=== PATIENT | female | born 1975 | race Caucasian/White ===

== ENCOUNTER 2017-08-11 15:24 | Emergency (ER) | payer BC, OTHER ==
[~2017-08-11] VITALS: Ht 162.6 cm; Wt 88.9 kg
[2017-08-11 15:39] VITALS: TEMP 36.7; Ht 162.6 cm; Wt 88.9 kg
--- NOTE | 2017-08-11 16:48 | DIAGNOSTIC IMAGING REPORT ---
R VENOUS DOPP LOWER EXT UNILAT CLINICAL HISTORY: 42 years-old Female presenting with RIGHT CALF PAIN X 1 MONTH. TECHNIQUE: Real-time grayscale and color and spectral Doppler ultrasound imaging of the veins of the right lower extremity was performed. Compression and augmentation were also utilized. COMPARISON: None. FINDINGS: Right: Common femoral vein: Patent. Greater saphenous vein: Patent. Deep femoral vein: Patent. Femoral vein: Patent. Popliteal vein: Patent. Calf veins: Patent. Other: In the popliteal fossa, a 1.8 x 2.9 x 1.0 cm hypoechoic ill-defined collection intimately associated with the knee joint is evident. This could represent a popliteal cyst. IMPRESSION: 1. No evidence of deep venous thrombosis. 2. Suspected small popliteal cyst. Electronically signed by: Shivam oKroma M.D. 08/11/2017 4:46 PM Dictated Date/Time: 08/11/2017 4:46 PM
[2017-08-11] MEDS ORDERED: NASONEX NAE (16:53)
[2017-08-11] MEDS ORDERED: FEXO1TAB54 PO (16:53)
--- NOTE | 2017-08-11 16:56 | EMERGENCY ROOM VISIT NOTE ---
ED Visit Note First contact with patient: 15:42 CHIEF COMPLAINT: Right calf pain 1 month HISTORY OF PRESENT ILLNESS: Patient is an otherwise healthy 42-year-old white female who presents emergency department for evaluation of right calf pain 1 month. She notes a dull, constant, burning pain in the medial right calf. She occasionally notes a pulling sensation. She denies any trauma or unusual activity prior to the onset of her symptoms. She states that it is staying the same and has not gotten any worse, and therefore she has not done anything for her pain until today. She states that she only notices some pain with weightbearing after prolonged walking, states that it has not affected her normal activities significantly. She denies noticing any redness, warmth or swelling. There has not been a long period of immobilization or long car or plane ride recently. There is no personal or family history of blood clots in the veins of the legs. Nonsmoker, no OCPs or HRT. REVIEW OF SYSTEMS: Review of systems as per HPI. All other systems reviewed were negative. 10 systems reviewed. PMH: Electronic medical records are reviewed and summarized as above/below. See Problem List. SOCIAL HISTORY: Patient lives at home with her family. Employed. Non-smoker PHYSICAL EXAM: Vital Signs: Reviewed Nurse's notes. CONSTITUTIONAL: Patient is a pleasant, well-appearing 42-year-old white female who is awake and alert and in no acute distress. HEART: Regular rate and rhythm. LUNGS: Clear to auscultation. NEUROLOGICAL: Alert oriented, coherent. PERRL, EOMs full, gait normal. EXTREMITIES: No cyanosis, edema, joint tenderness or effusion. Pulses equal bilaterally. There is no erythema, increased warmth or induration. Trace pretibial edema noted bilaterally. The medial right gastrocnemius is mildly tender to palpation. No cords can be palpated and Kwame's sign is negative. There is no lymphangitic streaking. Knee and ankle range of motion are full. There is no knee joint effusion palpable. Distal pulses are easily palpable. Sensation light touch is intact. EMERGENCY DEPARTMENT COURSE: Ultrasound of the right lower extremity was obtained and was negative for DVT. There is a suspected small popliteal cyst on the right. Ultrasound findings were reviewed with the patient. Supportive care measures were discussed. The popliteal cyst certainly could be giving her some irritation and causing the calf discomfort. She was reassured. Medication reconciliation: I attest that I have personally reviewed the patient' s current medication list. Blood pressure screening : Patient was found to have normal blood pressure on screening and does not require follow-up. Differential diagnoses entertained included Achilles tendinitis, calf strain, DVT, superficial thrombophlebitis, cellulitis, lumbar radiculopathy, among others. R VENOUS DOPP LOWER EXT UNILAT CLINICAL HISTORY: 42 years-old Female presenting with RIGHT CALF PAIN X 1 MONTH. TECHNIQUE: Real-time grayscale and color and spectral Doppler ultrasound imaging of the veins of the right lower extremity was performed. Compression and augmentation were also utilized. COMPARISON: None. FINDINGS: Right: Common femoral vein: Patent. Greater saphenous vein: Patent. Deep femoral vein: Patent. Femoral vein: Patent. Popliteal vein: Patent. Calf veins: Patent. Other: In the popliteal fossa, a 1.8 x 2.9 x 1.0 cm hypoechoic ill-defined collection intimately associated with the knee joint is evident. This could represent a popliteal cyst. IMPRESSION: 1. No evidence of deep venous thrombosis. 2. Suspected small popliteal cyst. Problem List Medical Problems: (1) Environmental and seasonal allergies Status: Chronic Current/Historical Medications Scheduled Fexofenadine Hcl (Raissa Allergy), 1 DOSE PO DAILY [Nasonex], 1 DOSE AMARIS DAILY Allergies Coded Allergies: No Known Allergies (Verified , 08/11/17) Vital Signs Date Time Temp Pulse Resp B/P (MAP) Pulse Ox O2 Delivery O2 Flow Rate FiO2 08/11/17 15:39 36.7 91 18 140/95 97 Room Air Departure Information Impression Primary Impression: Right calf pain Referrals Adrien Krause M.D. (MEDICAL) (PCP) Patient Instructions My [facility] Additional Instructions Ibuprofen(Motrin, Advil) may be used for fever or pain. Use 600mg every six hours as needed. Take with food. Avoid using more than 2400mg in a 24 hour period. Do not use 2400mg per day for more than three consecutive days without physician direction. Prolonged inappropriate use can lead to stomach upset or ulcers. This medication can be taken if you need to drive, work, or perform activities which may be dangerous when taking narcotic pain medication. (AND/OR) Acetaminophen(Tylenol) may be used for fever or pain. Use 1000mg every six hours as needed. Avoid using more than 3000mg in a 24 hour period. This medication can be taken if you need to drive, work, or perform activities which may be dangerous when taking narcotic pain medication. Warm, moist compresses to the affected area. Activity as tolerated. Continue current medications. Return to the ER immediately for any numbness, tingling, severe pain, extreme swelling in the extremity or as needed. Followup with your family doctor or orthopedic surgery if no improvement in 5-7 days.
[2017-08-11 17:06] VITALS: BP 128/94; PULSE 72; O2SAT 98
== END 2017-08-11 17:08 | disposition home or self-care (01) ==
LOC: C.EDB 15:25 → C.EDD 17:08
DX: M79.661 Pain in right lower leg (principal); J30.2 Other seasonal allergic rhinitis